=== PATIENT | female | born 1975 | race African-American/Black ===

== ENCOUNTER 2017-02-24 06:15 | Observation (INO) | payer OTHER ==
[~2017-02-24] VITALS: Ht 167.6 cm; Wt 72.7 kg
[2017-02-24] VITALS (29 sets, daily range): BP systolic 114–143; BP diastolic 55–83; PULSE 80–104; RESP 13–24; Ht 167.6 cm; Wt 72.7 kg
[2017-02-24] MEDS ORDERED: HYDR-3027 PO (07:05)
[2017-02-24] MEDS ORDERED: ROPIVACAINE 0.5 % 30 ML VIAL ONE (07:20)
[2017-02-24] MEDS ORDERED: MIDAZOLAM 1 MG/ML 2 ML INJ ONE (07:20)
--- NOTE | 2017-02-24 07:24 | HPN ---
Date/Time of Note Date/Time of Note DATE: 02/24/17 TIME: 07:23 Interval H&P Admission Note Pt. seen H&P reviewed: Systems changes noted below Patient had a small sip of Milk in her tea at 4 am, however anesthesia reviewed the risks of this and patient is ok proceeding MOLINA JC MD Feb 24, 2017 07:24
[2017-02-24] MEDS ORDERED: morphine 10 MG INJ IV PRN (07:30)
[2017-02-24] MEDS ORDERED: morphine 2 MG INJ IV PRN (07:30)
[2017-02-24] MEDS ORDERED: OXYCODONE/ACETAMINOPHEN (5/325) TAB PO PRN (07:30)
[2017-02-24] MEDS ORDERED: FENTAnyl 50 MCG/ML VIAL ONE (08:03)
[2017-02-24] MEDS ORDERED: NEOMYC/POLYMYX/BACIT 30 GM OINT ONE (08:07)
[2017-02-24] MEDS ORDERED: PROPOFOL 20 ML ONE (08:14)
[2017-02-24] MEDS ORDERED: LIDOCAINE 2% (SDV) 5 ML INJ ONE (08:14)
[2017-02-24] MEDS ORDERED: SUCCINYLCHOLINE CHLORIDE 100 MG/5 ML SYG IV ONE (08:14)
[2017-02-24] MEDS ORDERED: ROCURONIUM 50 MG INJ ONE (08:14)
[2017-02-24] MEDS ORDERED: CEFAZOLIN 1 GM INJ ONE (08:14)
[2017-02-24] MEDS ORDERED: METOCLOPRAMIDE 10 MG INJ ONE (08:15)
[2017-02-24] MEDS ORDERED: ONDANSETRON 4 MG INJ ONE (08:15)
[2017-02-24] MEDS ORDERED: SUGAMMADEX SODIUM 200 MG/2 ML VIAL IV ONE (08:15)
[2017-02-24] MEDS ORDERED: GLYCOPYRROLATE 0.4 MG INJ ONE (08:16)
[2017-02-24] MEDS ORDERED: ONDANSETRON 4 MG INJ IV PRN ×2 (08:30→12:30)
[2017-02-24] MEDS ORDERED: HYDROmorphONE (0.2 MG/ML) 10ML SYG IV PRN ×3 (08:30)
[2017-02-24] MEDS ORDERED: DIPHENHYDRAMINE 50 MG INJ IV PRN (08:30)
[2017-02-24] MEDS ORDERED: MEPERIDINE 25 MG INJ IV PRN (08:30)
[2017-02-24] MEDS ORDERED: FENTAnyl 50 MCG/ML VIAL IV PRN ×2 (08:30)
[2017-02-24] MEDS ORDERED: KETOROLAC 30 MG INJ ONE (12:06)
--- NOTE | 2017-02-24 12:12 | SIPON ---
Date/Time of Note Date/Time of Note DATE: 02/24/17 TIME: 12:06 Operative Report Preoperative Diagnosis Right ankle distal tibial pilon and fibula fracture Right ankle syndesmotic disruption Postoperative Diagnosis Right ankle distal tibial pilon and fibula fracture Right ankle syndesmotic disruption Right ankle posterolateral tibial plafond osteochondral defect Operation/Procedure Performed Right ankle arthroscopy with extensive debridement Right ankle arthroscopy with loose body removal Right ankle open reduction internal fixation of the distal tibial pilon and fibular fracture Right ankle open reduction internal fixation of syndesmosis Surgeon Clem Jc MD certified registered dental assistant None Anesthesia: general Estimated blood loss: 10 - 50 ml's Transfusion Required none Specimen None Grafts/Implants Arthrex titanium tightrope, Arthrex 8 hole titanium one third tubular plate, Arthrex 3.5 mm syndesmotic screw and 4.0 mm partially-threaded screw with a washer Complications none CLEM JC MD Feb 24, 2017 12:12
--- NOTE | 2017-02-24 12:13 | OPR ---
Date/Time of Note Date/Time of Note DATE: 02/24/17 TIME: 12:12 Operative Report Procedure Date: Feb 24, 2017 Preoperative Diagnosis Right ankle distal tibial pilon and fibula fracture Right ankle syndesmotic disruption Postoperative Diagnosis Right ankle distal tibial pilon and fibula fracture Right ankle syndesmotic disruption Right ankle posterolateral tibial plafond osteochondral defect Operation/Procedure Performed Right ankle arthroscopy with extensive debridement Right ankle arthroscopy with loose body removal from posterolateral tibial plafond osteochondral defect Right ankle open reduction internal fixation of the distal tibial pilon and fibular fracture Right ankle open reduction internal fixation of syndesmosis Application of Incisional Wound Vac Surgeon Clem JC MD Sanitation Worker none Anesthesia Type: general, other (popliteal) Anesthesiologist: JERRICA SUNSHINE Tourniquet Time: 105 min at 250 mmHg Estimated Blood Loss: 0 - 10 ml's Transfusion none Specimen none Grafts/Implants Prevena wound vac, Arthrex titanium tightrope, Arthrex 8 hole titanium one third tubular plate, Arthrex 3.5 mm syndesmotic screw and 4.0 mm partially-threaded screw with a washer Tubes/Drains Prevena Wound Vac over medial incision Complications none Pt Condition Post Procedure: stable Disposition: PACU Indications She is a 41-year-old female who sustained a right ankle distal tibial pilon and fibular fracture approximately 3-1/2 weeks ago. Patient was indicated for surgery given the significant displacement of the fracture fragments. Risk Note: Patient was explained the risks and benefits of surgery and the patient's sh[place] language including not limited to infection, bleeding, injury to blood vessels, nerves, ligaments or tendons. Risks of anesthesia, deep vein thrombosis and need for reduce future surgery. Patient acknowledged these risk by signing the surgical consent form. Procedure Description The patient was met in the preoperative holding area, marked with the correct operative extremity confirmed with both patient and consent. The patient was then brought back in the operative theater, placed supine on operative table, given preoperative antibiotics and preoperative regional block anesthesia. The patient was then placed in the arthroscopic thigh cee with all bony prominences well padded with a nonsterile tourniquet placed on the operative extremity. The patient was then prepped and draped in the normal sterile fashion. All parties in the room did a timeout and everyone agreed it was the correct patient, and extremity and procedure. Initial distraction was placed across the joint and the superficial peroneal nerve had been marked out prior to distraction, and using extreme caution to avoid any injury to the neurovascular structures, the anteromedial, anterolateral, and posterolateral portals were created in the standard fashion. The arthroscope was brought into the ankle and a 21-point exam was performed showing extensive hemorrhagic scar tissue and synovitis in the ankle with extensive scar tissue in both the medial, lateral, posterior and anterior gutters. Also noted was a 1.05 cm of loose body that was found in the posterior lateral aspect of the ankle, which was removed during the case. The syndesmosis was extensively debrided and found to be disrupted. There was a small posterior malleolar fracture with articular disruption seen. After this was done, the ankle was irrigated thoroughly with normal saline and the arthroscopes were removed. At this point, the thigh cee was removed and the patient was well padded under both extremities and patient was then reprepped and draped, and all gloves and instruments were changed. Attention was then turned initially to the distal fibular fracture. An incision was made over the the fibula. The incision was taken down to the fibula with care taken to avoid injury to the neurovascular structures. The fracture was identified and reduced and fixated with a lag screw followed by fixation with a one third tubular fibular plate and fibula was reduced and held out to show that there was fibular length and alignment and rotation had been re-achieved. Once this was shown to be out to length, alignment and rotation, the wound was irrigated thoroughly. Attention was then brought over to the medial aspect of the ankle and incision was taken down over the medial aspect of the ankle where there was shown to be a medial malleolus fracture of the anterior colliculus. The fracture was debrided and hematoma was removed and irrigated thoroughly. The fracture was introduced and then fixated with a 4.0 partially-threaded screw with a washer. This is generally well reduced in the AP and lateral position. A manual external rotation stress xray was performed showing syndesmosis widening. A syndesmotic 3.5 millimeter screw was placed across all 4 cortices while the ankle was held in reduction followed by a titanium tightrope was then placed across the joint to reduce the syndesmosis. The wounds were irrigated thoroughly prior to closure as well.Tourniquet had been brought down prior to this and hemostasis had been achieved prior to the wound closure. All wounds were thoroughly irrigated and closed with initially 2-0 Vicryl, followed by 3-0 Monocryl followed by 3-0 nylon in a vertical mattress fashion. All wounds were dressed with Xeroform, antibiotic ointment, 4 x 4s, 5 ABDs were placed and the patient was placed in a well-padded short leg splint. The medial incision was very swollen and a Marlen incisional wound VAC was placed over the medial incision prior to splint placement. All sponge and needle counts were correct. CLEM JC MD Feb 24, 2017 12:13
[2017-02-24] MEDS ORDERED: KETOROLAC 30 MG INJ IV STA (12:18)
[2017-02-24] MEDS: FENTAnyl 50 MCG/ML VIAL IV PRN ×2 (12:18→13:15)
[2017-02-24] MEDS: HYDROmorphONE 0.2 MG/ML PCA IV SCH ×2 (12:23→22:31)
[2017-02-24] MEDS ORDERED: DIPHENHYDRAMINE 25 MG CAP PO PRN (12:30)
[2017-02-24] MEDS ORDERED: CEFAZOLIN 1 GM INJ IV SCH (12:30)
[2017-02-24] MEDS ORDERED: ALPRAZOLAM 0.25 MG TAB PO STA (16:54)
[2017-02-24] MEDS ORDERED: ALPRAZOLAM 0.25 MG TAB PO PRN (17:00)
[2017-02-24] MEDS: CEFAZOLIN 1 GM/50 ML (PMX) 50 ML IVPB SCH ×2 (17:17→23:41)
--- NOTE | 2017-02-24 18:10 | CONS ---
Date/Time of Note Date/Time of Note DATE: 02/24/17 TIME: 18:08 Assessment/Plan Assessment/Plan Chief Complaint/Hosp Course 41 yo female with tibia fracture now s/p ORIF - Continue pain control with METEOROLOGICAL OBSERVER - Management per Dr Vila - Anticipate discharge tomorrow Problems: Consultation Date/Type/Reason Admit Date/Time Feb 24, 2017 at 14:03 Hx of Present Illness 41 yo female without PMH who presented with ankle fracture and is now s/p ORIF today Patient on METEOROLOGICAL OBSERVER, had anxiety before and received Xanax Currently comfortable Social History Smoking Status: Current every day smoker Exam/Review of Systems Vital Signs Vitals Vital Signs Date Time Temp Pulse Resp B/P Pulse Ox O2 Delivery O2 Flow Rate FiO2 02/24/17 15:04 Nasal Cannula 2.0 02/24/17 14:32 98.1 20 18 126/60 97 Exam Constitutional: alert, oriented, well developed Psych: nl mood/affect, no complaints Head: atraumatic, normocephalic Eyes: EOMI, PERRL, nl conjunctiva, nl lids, nl sclera ENMT: nl external ears & nose, nl lips & teeth, nl nasal mucosa & septum Neck: non-tender, supple Respiratory: clear to auscultation, normal air movement Cardiovascular: nl pulses, regular rate and rhythm Gastrointestinal: nl liver, spleen, non-tender, soft Musculoskeletal: nl extremities to inspection, nl gait and stance Extremities: normal pulses Neurological: ENTERPRISE APPLICATIONS MANAGER II-XII intact, nl mental status, nl speech, nl strength Skin: nl turgor, No rash or lesions Lymph: nl lymph nodes Medications Medications Current Medications Morphine Sulfate (morphine) 5 mg Q4H PRN IV PAIN; Start 02/24/17 at 07:30 Morphine Sulfate (morphine) 2 mg Q1H PRN IV PAIN; Start 02/24/17 at 07:30 Oxycodone/ Acetaminophen (Percocet (5/ 325)) 2 tab Q4H PRN PO PAIN; Start at 12:30 Ondansetron HCl (Zofran Inj) 4 mg Q4H PRN IV NAUSEA AND/OR VOMITING; Start at 12:30 Diphenhydramine HCl (Benadryl) 25 mg Q4H PRN PO ITCHING; Start 02/24/17 at 12: 30 Hydromorphone HCl MG/HR CONTINUOUS RATE ... Q4PCA IV Last administered on 02/24 12:23; Admin Dose 6 MG; Start 02/24/17 at 12:30 Cefazolin Sodium (Ancef 1 Gm/50 ml (Pmx)) 50 ml @ 100 mls/hr Q8H IVPB Last administered on 02/24/17 17:17; Admin Dose 100 MLS/HR; Start 02/24/17 at 16: 00; Stop 02/25/17 at 00:29 Alprazolam (Xanax) 0.25 mg Q8H PRN PO ANXIETY; Start 02/24/17 at 17:00 REGINALDO LIAO MD Feb 24, 2017 18:10
[2017-02-24] MEDS: OXYCODONE/ACETAMINOPHEN (5/325) TAB PO PRN (18:31)
[2017-02-25 00:32] VITALS: BP 129/57; RESP 18
[2017-02-25] MEDS: OXYCODONE/ACETAMINOPHEN (5/325) TAB PO PRN ×5 (01:18→20:35)
[2017-02-25 05:00] VITALS: BP 116/63; PULSE 87; RESP 18
[2017-02-25 08:31] VITALS: BP 118/66; RESP 18
[2017-02-25] MEDS ORDERED: HYDROmorphONE 2 MG/ML SYG IV PRN (13:30)
[2017-02-25 15:17] VITALS: BP 129/68; RESP 16
[2017-02-25] MEDS ORDERED: RIVAROXABAN 10 MG TABLET PO SCH (17:55)
[2017-02-25 19:45] VITALS: BP 128/69; RESP 18
--- NOTE | 2017-02-25 21:35 | PN ---
Date/Time of Note Date/Time of Note DATE: 02/25/17 TIME: 21:35 Assessment/Plan Lines/Catheters IV Catheter Type (from Nrsg): Peripheral IV Berry in Place (from Nrsg): No Assessment/Plan Assessment/Plan Postop day #1 status post: Right ankle arthroscopy with extensive debridement Right ankle arthroscopy with loose body removal from posterolateral tibial plafond osteochondral defect Right ankle open reduction internal fixation of the distal tibial pilon and fibular fracture Right ankle open reduction internal fixation of syndesmosis Application of Incisional Wound Vac -Nonweightbearing to the right lower extremity -PT to gait train -P.o. and IV pain control -We can DC home tomorrow -Xarelto for DVT prophylaxis - Michael Jc MD Subjective 24 Hr Interval Summary Patient in severe pain. She denies fevers chills nausea or vomiting Exam/Review of Systems Vital Signs Vitals Vital Signs Date Time Temp Pulse Resp B/P Pulse Ox O2 Delivery O2 Flow Rate FiO2 02/26/17 07:39 98.2 72 19 140/86 98 02/25/17 05:00 Room Air 2.0 Intake and Output 02/25/17 02/25/17 02/26/17 14:59 22:59 06:59 Intake Total 1100 ml Balance 1100 ml Exam Constitutional: alert, oriented, well developed Musculoskeletal: other (Right lower extremity: Splint was taken off and the wound VAC was reinforced. Toes are warm and perfused and sensation was intact light touch to the exposed dorsum and plantar aspect of the foot.) MOLINA JC MD Feb 25, 2017 21:35
[2017-02-25] MEDS: SENNA TAB PO PRN (22:47)
[2017-02-26] MEDS: OXYCODONE/ACETAMINOPHEN (5/325) TAB PO PRN ×4 (00:21→13:00)
[2017-02-26 01:38] VITALS: BP 133/68; RESP 18
[2017-02-26] MEDS: SENNA TAB PO PRN (04:54)
[2017-02-26 07:39] VITALS: BP 140/86; RESP 19
--- NOTE | 2017-02-26 12:34 | PN ---
Date/Time of Note Date/Time of Note DATE: 02/26/17 TIME: 12:34 Assessment/Plan Lines/Catheters IV Catheter Type (from Nrsg): Saline Lock Berry in Place (from Nrsg): No Assessment/Plan Assessment/Plan Postop day #2 status post: Right ankle arthroscopy with extensive debridement Right ankle arthroscopy with loose body removal from posterolateral tibial plafond osteochondral defect Right ankle open reduction internal fixation of the distal tibial pilon and fibular fracture Right ankle open reduction internal fixation of syndesmosis Application of Incisional Wound Vac -Nonweightbearing to the right lower extremity -PT to gait train -P.o. and IV pain control -We can DC home today -Xarelto for DVT prophylaxis - pt to go to [facility] for new splint today - Michael Jc MD Subjective 24 Hr Interval Summary Pain is better controlled Exam/Review of Systems Vital Signs Vitals Vital Signs Date Time Temp Pulse Resp B/P Pulse Ox O2 Delivery O2 Flow Rate FiO2 02/26/17 07:39 98.2 72 19 140/86 98 02/25/17 05:00 Room Air 2.0 Intake and Output 02/25/17 02/25/17 02/26/17 14:59 22:59 06:59 Intake Total 1100 ml Balance 1100 ml Exam Constitutional: alert, oriented, well developed Musculoskeletal: other (RLE/ splint intact, toes wiggle, silt to exposed d,m,l, p,fdws. cr brisk) MOLINA JC MD Feb 26, 2017 12:34
--- NOTE | 2017-02-26 12:34 | DS ---
Date/Time of Note Date/Time of Note DATE: 02/26/17 TIME: 12:34 Discharge Summary Admission/Discharge Info Admit Date/Time Feb 24, 2017 at 14:03 Discharge Date/Time 02/26/17 Discharge Diagnosis Right ankle arthroscopy with extensive debridement Right ankle arthroscopy with loose body removal from posterolateral tibial plafond osteochondral defect Right ankle open reduction internal fixation of the distal tibial pilon and fibular fracture Right ankle open reduction internal fixation of syndesmosis Application of Incisional Wound Vac Patient Condition: Good Procedures Right ankle arthroscopy with extensive debridement Right ankle arthroscopy with loose body removal from posterolateral tibial plafond osteochondral defect Right ankle open reduction internal fixation of the distal tibial pilon and fibular fracture Right ankle open reduction internal fixation of syndesmosis Application of Incisional Wound Vac Hospital Course She was admitted postop for pain control. At the end of postop day #2 she was doing significantly better and pain was well controlled. She was neurovascularly intact. Patient will come in on postop day #5 for the wound VAC removal. Home Meds Active Scripts Rivaroxaban* (Xarelto*) 10 Mg Tablet, 10 MG PO WITH DINNER for 30 Days, #30 TAB Prov:CLEM VILA MD 02/26/17 Discontinued Reported Medications Hydrocodone Bit/Acetaminophen (Vicodin HP 10-300) 1 Each Tablet, 1 TAB PO Q4H Y for PAIN, TAB 02/24/17 Primary Care Provider Clem Vila MD Time spent on discharge: < 30 minutes CLEM VILA MD Feb 26, 2017 12:34
--- NOTE | 2017-02-26 12:35 | PDOCDIS ---
Discharge Instructions DIAGNOSIS Discharge Diagnosis Right ankle pilon fracture CONDITION Patient Condition: Good HOME CARE INSTRUCTIONS: Diet Instructions: Regular ACTIVITY: Activity Restrictions: Slowly Increase Activity Rest between Activity Avoid heavy lifting Avoid Heavy Housework No Weight Bearing Activity Restrictions Comment: elevate right foot on wedge pillow, care for wound vac MOLINA JC MD Feb 26, 2017 12:35
[2017-02-26] MEDS ORDERED: RIVA10TA PO (12:37)
--- NOTE | 2017-02-26 17:22 | OPR ---
Date/Time of Note Date/Time of Note DATE: 02/24/17 TIME: 17:20 Operative Report Procedure Date: Feb 24, 2017 Preoperative Diagnosis Right ankle distal tibial pilon and fibula fracture Right ankle syndesmotic disruption Postoperative Diagnosis Right ankle distal tibial pilon and fibula fracture Right ankle syndesmotic disruption Right ankle posterolateral tibial plafond osteochondral defect Operation/Procedure Performed Right ankle arthroscopy with extensive debridement Right ankle arthroscopy with loose body removal Right ankle open reduction internal fixation of the distal tibial pilon and fibular fracture Right ankle open reduction internal fixation of syndesmosis Surgeon Clem Jc MD Anesthesia Type: general, other (popliteal and adductor) Anesthesiologist: JERRICA SUNSHINE Estimated Blood Loss: 10 - 50 ml's Transfusion none Specimen none Grafts/Implants Arthrex titanium tightrope, Arthrex 8 hole titanium one third tubular plate, Arthrex 3.5 mm syndesmotic screw and 4.0 mm partially-threaded screw with a washer Tubes/Drains none Complications none Pt Condition Post Procedure: stable Disposition: PACU CLEM JC MD Feb 26, 2017 17:22
== END 2017-02-26 13:59 | disposition home or self-care (01) ==
LOC: SDS 06:15 → MS1 13:43 → REC 14:03 → MS1 14:07
PROVIDERS: ADMIT Orthopaedic Surgery; ATTEND Orthopaedic Surgery
DX: S82.871A Displaced pilon fracture of right tibia, initial encounter for closed fracture (principal); S82.401A Unspecified fracture of shaft of right fibula, initial encounter for closed fracture; X58.XXXA Exposure to other specified factors, initial encounter; M21.6X1 Other acquired deformities of right foot
CPT/HCPCS: 29892; 73610; 82306; 97163; J0690; J1170; J1885; J2175; J2250; J2405; J2765; J2795; J3010; Z7500; Z7512; Z7610; G0378